=== PATIENT | male | born 1970 | race Caucasian/White ===

== ENCOUNTER 2016-11-07 11:09 | Emergency (ER) | payer OTHER ==
[2016-11-07 11:17] VITALS: TEMP 98.6; O2SAT 97
[2016-11-07 12:10] LABS: % IMMATURE GRANULYOCYTES 0.3 % (0.0-1.1); ABSOLUTE IMMATURE GRANULOCYTES 0.02 10^3/uL (0.00-0.10); ADD DIFF? NO; ADD MORPH? NO; ADD SCAN? NO; ATYPICAL LYMPHOCYTE FLAG 0 (0-99); FRAGMENT RBC FLAG 0 (0-99); HEMATOCRIT 44.8 % (40.0-51.0); HEMOGLOBIN 15.6 g/dL (13.7-17.5); LEFT SHIFT FLG 0 (0-99); LIPEMIA HEMOLYSIS FLAG 90 (0-99); MEAN CELL HEMOGLOBIN 32.1 pg (27.9-34.1); MEAN CELL HEMOGLOBIN CONCENTR. 34.8 g/dL (32.4-36.7); MEAN CELL VOLUME 92.2 fL (81.5-99.8); MEAN PLATELET VOLUME 10.7 fL (8.7-11.7); PLATELET CLUMPS FLAG 0 (0-99); PLATELET COUNT 210 10^3/uL (150-400); RED BLOOD CELL COUNT 4.86 10^6/uL (4.40-6.38); RED CELL DISTRIBUTION WIDTH 11.1 % (11.5-15.2)
[2016-11-07 12:27] LABS: ALANINE AMINOTRANSFERASE 30 IU/L (21-72); ALBUMIN 4.6 g/dL (3.5-5.0); ALKALINE PHOSPHATASE 63 IU/L (38-126); ANION GAP 13 mEq/L (8-16); ASPARTATE AMINOTRANSFERASE 17 IU/L (17-59); BILIRUBIN,TOTAL 1.1 mg/dL (0.1-1.4); CALCIUM 10.2 mg/dL (8.5-10.4); CARBON DIOXIDE 21 mEq/l (22-31); CHLORIDE 103 mEq/L (97-110); CREATININE 0.8 mg/dL (0.7-1.3); GLOMERULAR FILTRATION RATE > 60; GLUCOSE 233 mg/dL (70-100); POTASSIUM 4.3 mEq/L (3.5-5.2); SODIUM 137 mEq/L (134-144); TOTAL PROTEIN 7.2 g/dL (6.3-8.2)
[2016-11-07] MEDS ORDERED: NS 1,000 ML IV ONE (13:09)
[2016-11-07 13:18] VITALS: BP 124/80; PULSE 78; RESP 18
--- NOTE | 2016-11-07 13:31 | EDPHY ---
H & P Time Seen by Provider: 11/07/16 13:14 HPI/ROS: CHIEF COMPLAINT: High blood sugar HISTORY OF PRESENT ILLNESS: 45-year-old male presents with high blood pressure. He he has a history of type 2 diabetes and has never been placed on medications. He has been trying to manage his blood sugar through diet alone. However he has been checking his blood sugar recently and it has been ranging between 150 and 220. This morning, his vision is more blurry than usual and he became concerned. 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 His neurologist and primary care physician are in [place]. No recent illness. REVIEW OF SYSTEMS: Constitutional: No fever, no chills ENT: No sore throat Respiratory: No cough, no shortness of breath Cardiac: No chest pain Gastrointestinal: No nausea, no vomiting, no abdominal pain Genitourinary: no dysuria Musculoskeletal: No leg pain or swelling Skin: No rash Neurological: No headache,no weakness Psychiatric: No depression Past Medical/Surgical History: Diabetes type 2 Optic neuritis Social History: Single, no recent alcohol Smoking Status: Never smoked Physical Exam: General Appearance: Alert, pleasant] ENT, Mouth: Mucous membranes moist, no conjunctival pallor, EOMI Neck: Normal inspection Respiratory: Lungs are clear to auscultation Cardiovascular: Regular rate and rhythm Gastrointestinal: Abdomen is soft and nontender Neurological: A&O, nonfocal, normal gait Skin: Warm and dry Extremities: Nontender, no pedal edema Psychiatric: Mood and affect normal Constitutional: Initial Vital Signs Temperature (C) 37.0 C 11/07/16 11:14 Heart Rate 93 11/07/16 11:14 Respiratory Rate 16 11/07/16 11:14 Blood Pressure 111/79 11/07/16 11:14 O2 Sat (%) 97 11/07/16 11:14 O2 Delivery Mode Room Air Allergies/Adverse Reactions: No Known Allergies Allergy (Unverified 11/07/16 11:14) Home Medications: Medication Instructions Recorded metFORMIN HCL [Metformin HCl] 500 mg PO BID #30 tablet 11/07/16 Medical Decision Making ED Course/Re-evaluation: Blood sugars in the 200s and there is no evidence of DKA or infection. I wrote a prescription for metformin. He will follow up with his primary care physician tomorrow. - Data Points Laboratory Results: Laboratory Results 11/07/16 12:00 11/07/16 12:00 11/07/16 11/07/16 11/07/16 12:00 12:00 11:16 WBC 7.22 10^3/uL 10^3/uL (3.80-9.50) RBC 4.86 10^6/uL 10^6/uL (4.40-6.38) Hgb 15.6 g/dL g/dL (13.7-17.5) Hct 44.8 % % (40.0-51.0) MCV 92.2 fL fL (81.5-99.8) MCH 32.1 pg pg (27.9-34.1) MCHC 34.8 g/dL g/dL (32.4-36.7) RDW 11.1 % L % (11.5-15.2) Plt Count 210 10^3/uL 10^3/uL (150-400) MPV 10.7 fL fL (8.7-11.7) Neut % (Auto) 68.6 % % (39.3-74.2) Lymph % (Auto) 23.5 % % (15.0-45.0) [place] % (Auto) 6.8 % % (4.5-13.0) Eos % (Auto) 0.1 % L % (0.6-7.6) Baso % (Auto) 0.7 % % (0.3-1.7) Nucleat RBC Rel Count 0.0 % % (0.0-0.2) Absolute Neuts (auto) 4.95 10^3/uL 10^3/uL (1.70-6.50) Absolute Lymphs (auto) 1.70 10^3/uL 10^3/uL (1.00-3.00) Absolute Monos (auto) 0.49 10^3/uL 10^3/uL (0.30-0.80) Absolute Eos (auto) 0.01 10^3/uL L 10^3/uL (0.03-0.40) Absolute Basos (auto) 0.05 10^3/uL 10^3/uL (0.02-0.10) Absolute Nucleated RBC 0.00 10^3/uL 10^3/uL (0-0.01) Immature Gran % 0.3 % % (0.0-1.1) Immature Gran # 0.02 10^3/uL 10^3/uL (0.00-0.10) Sodium 137 mEq/L mEq/L (134-144) Potassium 4.3 mEq/L mEq/L (3.5-5.2) Chloride 103 mEq/L mEq/L (97-110) Carbon Dioxide 21 mEq/l L mEq/l (22-31) Anion Gap 13 mEq/L mEq/L (8-16) BUN 16 mg/dL mg/dL (7-23) Creatinine 0.8 mg/dL mg/dL (0.7-1.3) Estimated GFR > 60 Glucose 233 mg/dL H mg/dL (70-100) POC Glucose 216 mg/dL H mg/dL (70-100) Calcium 10.2 mg/dL mg/dL (8.5-10.4) Total Bilirubin 1.1 mg/dL mg/dL (0.1-1.4) AST 17 IU/L IU/L (17-59) ALT 30 IU/L IU/L (21-72) Alkaline Phosphatase 63 IU/L IU/L (38-126) Total Protein 7.2 g/dL g/dL (6.3-8.2) Albumin 4.6 g/dL g/dL (3.5-5.0) Medications Given: Discontinued Medications Sodium Chloride (Ns) 1,000 mls @ 0 mls/hr IV ONCE ONE PRN Reason: Wide Open Stop: 11/07/16 13:10 Last Admin: 11/07/16 13:11 Dose: 1,000 mls Point of Care Test Results: 11/07/16 11:16 POC Glucose 216 H Departure - Departure Disposition: Home, Routine, Self-Care Clinical Impression: Hyperglycemia due to type 2 diabetes mellitus Qualifiers: Diabetes mellitus fpc insulin use: without termite control servicer use Qualified Code(s ): E11.65 - Type 2 diabetes mellitus with hyperglycemia Condition: Good Instructions: Type 2 Diabetes in Adults (ED) Referrals: NOT,SURE [Other] - As per Instructions Prescriptions: metFORMIN HCL [Metformin HCl] 500 mg PO BID #30 tablet
== END 2016-11-07 14:01 | disposition home or self-care (01) ==
DX: E11.65 Type 2 diabetes mellitus with hyperglycemia (principal)